=== PATIENT | female | born 1980 | race Caucasian/White ===

== ENCOUNTER 2017-08-26 05:25 | Inpatient (IN) | payer BC ==
[~2017-08-26 05:25] MED LIST: Acetaminophen 325 MG Tab PO PRN; Carboprost Tromethamine 250 MCG/1 ML Amp IM PRN; Lactated Ringers 1,000 ML IV SCH; Lactated Ringers 500 ML IV ONE; Lidocaine 1% 30 ML SDV INJECT PRN; Methylergonovine 0.2 MG/1 ML Amp IM PRN; Misoprostol 400 MCG (4 X 100 MCG TAB) RECTAL PRN; Ondansetron 4 MG/2 ML SDV IV PRN; Sodium Chloride 0.9% 10 ML Syringe FLUSH PRN; Tranexamic Acid 1,000 MG in Sodium Chloride 0.9% 100 ML IV PRN
[2017-08-26] MEDS ORDERED: Bupivacaine 0.75%/D5W 2 ML Amp ONE (09:32)
[2017-08-26] MEDS ORDERED: EPINEPHrine 1 MG/ML SDV ONE (09:32)
[2017-08-26] MEDS ORDERED: fentaNYL 100 MCG/2 ML SDV ONE (09:32)
[2017-08-26] MEDS ORDERED: Oxytocin/Normal Saline 30 UNIT/500 ML BAG IV SCH (09:45)
--- NOTE | 2017-08-26 11:25 | PCM.PRNOTE ---
- Free Text/Narrative Note: Requested to provide analgesia to full term patient in severe pain. Upon entering the room, patient is supine in bed complaining of severe abdominal/ pelvic pain and discomfort. Procedure was discussed with patient including adverse outcomes and expectations. Pt consented to analgesia, SAB/IT. Pt placed into a sitting position. Landmarks for SAB/IT were identified and marked. Hands were washed and appropriate PPE was applied. Back was prepped with betadine x3. A sterile, transparent, fenestrated drape was applied. Excess betadine was removed. Using 3 mL of a 1% lidocaine solution, a skin wheel was placed at the L3/L4 interspace. A 24 ga (4 inch) Pencan spinal needle was inserted until positive for CSF. Negative for heme or paresthesias. Injected fentanyl 30 mcg, sufentanil 20 mcg, and 10.5 mg of a 0.75% bupivacaine solution with an epi wash. Pt was placed left lateral position for approximately 20 minutes. There were zero complications or adverse outcomes. Will continue to monitor. Procedure Date & Time: 08-26-17 [id number]
[2017-08-26] MEDS ORDERED: Benzocaine/Menthol 20%-0.5% Spray 56 GM Canister TOP PRN (14:19)
[2017-08-26] MEDS ORDERED: Zolpidem 5 MG Tab PO PRN (14:19)
[2017-08-26] MEDS ORDERED: Docusate Sodium 100 MG Cap PO PRN (14:19)
[2017-08-26] MEDS ORDERED: Ibuprofen 800 MG Tab PO PRN (14:19)
[2017-08-26] MEDS ORDERED: Simethicone 80 MG Tab.Chew PO PRN (14:19)
[2017-08-26] MEDS: Ferrous Sulfate 325 MG Tab PO SCH (18:12)
[2017-08-27] MEDS: Prenatal Multivitamin with Calcium/Folic Acid/Iron Tab PO SCH (09:14)
[2017-08-27] MEDS: Ferrous Sulfate 325 MG Tab PO SCH ×2 (09:14→18:06)
--- NOTE | 2017-08-27 15:45 | PN ---
DATE: 08/27/2017 The patient is day #1, status post vaginal delivery. Her and baby are both doing well. Lochia is minimal. PHYSICAL EXAMINATION: Vital Signs: The patient is afebrile. Heart rate 61 to 71, blood pressure 92 to 120 over 58 to 76, respiratory rate 16, O2 saturation 98%. The patient's blood type is B positive. She is rubella immune. Hemoglobin 10.6 from 11.8 predelivery. The patient's fundus is firm below the umbilicus. Extremities: Nontender. No edema. ASSESSMENT AND PLAN: day #1, status post vaginal delivery. Mom and baby are both doing well. Our family physician would like to continue to watch the baby overnight. Therefore we will likely discharge the patient tomorrow. [facility] /[id number]
[2017-08-28] MEDS: Prenatal Multivitamin with Calcium/Folic Acid/Iron Tab PO SCH (08:30)
[2017-08-28] MEDS: Ferrous Sulfate 325 MG Tab PO SCH (08:30)
[2017-08-28 09:58] VITALS: BP 122/77
[2017-08-28] MEDS ORDERED: fentaNYL 100 MCG/2 ML SDV ITHECAL ONE (11:33)
[2017-08-28] MEDS ORDERED: Bupivacaine 0.75%/D5W 2 ML Amp ONE (11:33)
[2017-08-28] MEDS ORDERED: EPINEPHrine 1 MG/ML SDV IV ONE (11:33)
--- NOTE | 2017-08-28 12:58 | DISCH ---
DATE: 08/28/2017 SUBJECTIVE: The patient is day #2, status post vaginal delivery. Mom and baby are both doing well. Lochia is minimal. She has no complaints. OBJECTIVE: Vital Signs: She is afebrile. Heart rate 61 to 71, blood pressure 92 to 120/58 to 76, and respiratory rate 14 to 16, and O2 sat 98%. Abdomen: The fundus is firm below the umbilicus. Extremities: No tenderness and no edema. The patient's blood type is B positive. She is rubella immune. Hemoglobin after delivery was 10.6 from 11.8. ASSESSMENT AND PLAN: day #2, status post vaginal delivery. Mom and baby are both doing well. We will discharge them to home with a followup in 6 weeks. [facility] /[id number]
--- NOTE | 2017-08-30 01:28 | DEL ---
DATE: 08/26/2017 PREPROCEDURE DIAGNOSES: 1. A 41 and 0/7 weeks by 11-week ultrasound. 2. 4, para 1-0-2-1. 3. Advanced maternal age. 4. Pericardial effusion on ultrasound. 5. 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 6. Short cervix. 7. The patient refused glucose tolerance testing. 8. The patient refused influenza and Tdap vaccines. 9. Blood type B positive, rubella immune, and group B Streptococcus negative. POSTPROCEDURE DIAGNOSES: 1. A 41 and 0/7 weeks by 11-week ultrasound. 2. 4, now para 2-0-2-2. 3. Advanced maternal age. 4. Pericardial effusion on ultrasound. 5. 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 6. Short cervix. 7. The patient refused glucose tolerance testing. 8. The patient refused influenza and Tdap vaccines. 9. Blood type B positive, rubella immune, and group B Streptococcus negative. 10.Status post spontaneous vaginal delivery of viable female infant. HISTORY OF PRESENT ILLNESS: The patient is a 36-year-old with the above-listed history, who was brought into the hospital for induction of labor due to being post dates. She was already 5 cm dilated, and artificial rupture of membranes was performed with return of a very lightly stained yellow fluid. She progressed well through stage 1, lasting about 4 hours once her regular contractions kicked in and then only needed to push for 19 minutes. Labor itself was uncomplicated. DETAILS OF PROCEDURE: The patient in dorsal lithotomy position. She delivered a viable female infant in the OA position over an intact perineum. was dried, stimulated. Mouth and nose bulb suctioned and baby placed on mother's abdomen. Umbilical cord was not clamped and cut until after it had stopped pulsating after which time three-vessels were verified and cord blood sample obtained. Placenta was then delivered by gentle cord traction and concomitant uterine massage. There was a first-degree perineal laceration repaired with 3-0 Vicryl in the usual fashion with good approximation. Mother tolerated the procedure well. There were no complications. ESTIMATED BLOOD LOSS: 200 mL. DISPOSITION: Mother and baby to stay in the room at this time to initiate . Anticipate normal post-delivery care. [facility] /[id number]
== END 2017-08-28 11:34 | disposition home or self-care (01) | DRG 560 ==
LOC: DL.OBCHECK 05:25 → DL.OB 05:29 → OBSVTOIN 12:49 → DL.OB 12:49
PROVIDERS: ADMIT Family Medicine; ATTEND Family Medicine
PROC: 10E0XZZ Delivery of Products of Conception, External Approach (ICD-10-PCS; principal; 2017-08-26)
PROC: 3E0S3GC Introduction of Other Therapeutic Substance into Epidural Space, Percutaneous Approach (ICD-10-PCS; 2017-08-26)
PROC: 0HQ9XZZ Repair Perineum Skin, External Approach (ICD-10-PCS; 2017-08-26)
PROC: 10907ZC Drainage of Amniotic Fluid, Therapeutic from Products of Conception, Via Natural or Artificial Opening (ICD-10-PCS; 2017-08-26)
DX: O48.0 Post-term pregnancy (principal); Z3A.41 41 weeks gestation of pregnancy; Z37.0 Single live birth; O70.0 First degree perineal laceration during delivery; O26.873 Cervical shortening, third trimester; Z82.79 Family history of other congenital malformations, deformations and chromosomal abnormalities; Z28.21 Immunization not carried out because of patient refusal
CPT/HCPCS: 36415; 59300; 59409; 85018; 85027; A9270-GY; J0171; J2405; J2590; J3010; J7120

== ENCOUNTER 2023-08-21 20:01 | Emergency (ER) | payer BC ==
[2023-08-21 21:33] LABS: HEMATOCRIT 41.4 % (37.0-47.0); MEAN CORPUSCULAR HGB CONC 33.8 g/dL (33.0-35.0); MEAN CORPUSCULAR VOLUME 88.7 fL (80-100); PLATELET COUNT,PLT 201 10^3/uL (150-450); RED BLOOD CELL COUNT 4.67 10^6/uL (4.2-5.4); WHITE BLOOD CELL COUNT,WBC 7.2 10^3/uL (5.0-10.0)
[2023-08-21 21:35] LABS: APPEARANCE,URINE CLEAR (CLEAR); BILIRUBIN,URINE NEGATIVE (NEGATIVE); COLOR,URINE YELLOW (YELLOW); GLUCOSE,URINE NEGATIVE (NEGATIVE); KETONES,URINE NEGATIVE (NEGATIVE); LEUKOCYTE ESTERASE,URINE NEGATIVE (NEGATIVE); NITRITE,URINE NEGATIVE (NEGATIVE); OCCULT BLOOD,URINE SMALL (NEGATIVE); PROTEIN,URINE NEGATIVE (NEGATIVE); UROBILINOGEN,URINE 0.2 mg/dL (0.2-1.0)
[2023-08-21 21:36] LABS: BASOPHILS PERCENT AUTO 0.6 % (0.0-1.0); EOSINOPHILS PERCENT AUTO 26.1 % (1.0-3.0); LYMPHOCYTES PERCENT AUTO 30.9 % (20.5-50.1); MONOCYTES PERCENT AUTO 7.4 % (2-8)
[2023-08-21] MEDS: Ondansetron 4 MG in Sodium Chloride 0.9% 50 ML IV ONE (21:53)
[2023-08-21 21:54] LABS: A/G RATIO 1.2; ALBUMIN 3.8 g/dL (3.4-5.0); ANION GAP 13.7 mEq/L (7-13); BILIRUBIN TOTAL 0.5 mg/dL (0.2-1.0); BUN/CREATININE RATIO 11.5 (No establ ref range); CALCIUM 8.9 mg/dL (8.5-10.1); CREATININE 1.13 mg/dL (0.55-1.02); EST CRCL DRUG DOSING (CG) 59.47 mL/min; POTASSIUM,K 3.7 mmol/L (3.5-5.1); PROTEIN TOTAL,TP 7.1 g/dL (6.4-8.2)
[2023-08-21 21:56] LABS: AMORPHOUS SEDIMENT,URINE RARE /HPF (NOT SEEN); BACTERIA,URINE RARE /HPF (0-FEW/HPF); EPITHELIAL CELLS,URINE FEW /HPF (NOT SEEN); MUCUS,URINE RARE /LPF (NOT SEEN); WBC,URINE 0-5 /HPF (0-5/HPF)
[2023-08-21 22:08] LABS: EOSINOPHILS PERCENT MAN 30 % (1-3); LYMPHOCYTES PERCENT MAN 30 % (20-50); MONOCYTES PERCENT MAN 6 % (2-8); SEG NEUTROPHILS PERCENT MAN 34 % (42-75)
[2023-08-21] MEDS: Iopamidol 612 MG/ML 100 ML Bottle IVPUSH ONE (22:24)
[2023-08-21] MEDS: Take Home: Lidocaine 2% Viscous Solution 15 ML UD, 2 Cup Pack PO ONE (22:27)
[2023-08-21] MEDS: Aluminum Hydroxide/Magnesium Hydroxide/Simethicone Susp 30 ML Cup PO ONE (22:27)
[2023-08-21] MEDS: Sodium Chloride 0.9% 10 ML Syringe FLUSH PRN (22:30)
[2023-08-21] MEDS: Aspirin 81 MG Tab.Chew PO ONE (22:51)
[2023-08-21] MEDS: GI Cocktail Oral Solution 30 ML PO ONE (22:52)
[2023-08-22 00:54] VITALS: BP 125/87; PULSE 58
== END 2023-08-22 00:38 | disposition home or self-care (01) ==
LOC: DL.ED 20:01
DX: K29.70 Gastritis, unspecified, without bleeding (principal)
CPT/HCPCS: 36415; 71046; 74177; 80053; 81001; 81025; 83690; 83735; 84484; 85025; 85379; 93005; 93010; 99284; A9270; J2405; J3490; Q9967; 96374